=== PATIENT | female | born 1965 | race Caucasian/White ===

== ENCOUNTER 2017-12-27 22:40 | Emergency (ER) | payer BC ==
[~2017-12-27] VITALS: Ht 160 cm; Wt 78.0 kg
[~2017-12-27 22:40] MED LIST: LOSARTAN POTASS50 MG PO; VITAMIN D PO
[2017-12-27] MEDS ORDERED: HYDROCODONE/APAP 10MG-325MG TAB PO ONE (23:00)
[2017-12-27] MEDS ORDERED: DIAZEPAM INJ 5 MG/ML 2 ML IM ONE ×2 (23:00→23:15)
[2017-12-27] MEDS ORDERED: KETOROLAC TROMETHAMINE 60 MG/2 ML VIAL IM ONE (23:00)
[2017-12-27] MEDS ORDERED: DIAZEPAM 5 MG TAB PO ONE (23:45)
[2017-12-27 23:51] VITALS: BP 143/74
== END 2017-12-28 00:35 | disposition home or self-care (01) ==
LOC: ER 22:40
DX: M54.2 Cervicalgia (principal); S16.1XXA Strain of muscle, fascia and tendon at neck level, initial encounter; S29.012A Strain of muscle and tendon of back wall of thorax, initial encounter; M25.511 Pain in right shoulder; S46.811A Strain of other muscles, fascia and tendons at shoulder and upper arm level, right arm, initial encounter
CPT/HCPCS: 96372; 99283; J1885

== ENCOUNTER 2018-02-15 10:00 | Outpatient (RCR) | payer BC | END 2018-02-17 | LOC: PT 10:00 | PROVIDERS: ATTEND Specialist | DX: M75.41 Impingement syndrome of right shoulder (principal); M25.511 Pain in right shoulder; M62.81 Muscle weakness (generalized) | CPT/HCPCS: 97139 ==

== ENCOUNTER 2018-10-23 17:24 | Emergency (ER) | payer SELFPAY ==
[~2018-10-23] VITALS: Ht 160 cm; Wt 81.6 kg
[2018-10-23] MEDS ORDERED: CLONIDINE HCL 0.1 MG TAB PO ONE (17:45)
[2018-10-23] MEDS ORDERED: IBUPROFEN 400 MG TAB PO ONE (18:00)
== END 2018-10-23 21:00 | disposition left against medical advice (07) ==
LOC: ER 17:24
DX: G51.0 Bell's palsy (principal)
CPT/HCPCS: 99282